=== PATIENT | male | born 1985 | race Caucasian/White ===

== ENCOUNTER → 2024-10-24 12:52 | Outpatient (REF) | payer MEDICARE, SELFPAY | LOC: RAD 12:52 | PROVIDERS: ATTENDING PHYSICIAN Nurse Practitioner; FAMILY PHYSICIAN Student in an Organized Health Care Education/Training Program | DX: R10.31 Right lower quadrant pain (principal); R10.32 Left lower quadrant pain | CPT/HCPCS: 76882 ==